=== PATIENT | female | born 1960 | race Caucasian/White ===

== ENCOUNTER 2017-08-17 09:28 | Day surgery (SDC) | payer BC ==
[~2017-08-17 09:28] MED LIST: Acetaminophen TAB* 325 MG PO PRN; Buffered Lidocaine 0.9% SYRIN* 5 ML/SYR SYRINGE INTRADERM ONE; DiMENhydriNATE IV* 50 MG/ML VIAL IV PUSH PRN; Naloxone* 0.4 MG/ML 1 ML VIAL IV PRN; Ondansetron INJ* 2 MG/ML VIAL IV PRN; PROCHLORPERAZINE INJ 5 MG/ML 2 ML VIAL IV PRN
[2017-08-17] MEDS ORDERED: Buffered Lidocaine 0.9% SYRIN* 5 ML/SYR SYRINGE ONE (09:30)
[2017-08-17] MEDS ORDERED: Midazolam* 1 MG/ML 2 ML VIAL (2 MG) ONE ×2 (10:51→12:41)
[2017-08-17] MEDS ORDERED: fentaNYL* 50 MCG/ML 2 ML VIAL (100 MCG VIAL) ONE (10:51)
[2017-08-17] MEDS ORDERED: Lidocaine 1% MPF wEPI 200,000* 30 ML SDV ONE (12:14)
[2017-08-17] MEDS ORDERED: Bupivacaine 0.25% SDV* 30 ML ONE (12:15)
[2017-08-17] MEDS ORDERED: Propofol* 10 MG/ML 20 ML BTL IV PUSH ONE (12:44)
[2017-08-17] MEDS ORDERED: Lidocaine 2% PF * 5 ML VIAL ONE (12:44)
[2017-08-17] MEDS ORDERED: Ondansetron INJ* 2 MG/ML VIAL ONE (12:50)
[2017-08-17] MEDS ORDERED: Dexamethasone IV* 4 MG/ML 1 ML (4 MG) ONE (12:50)
[2017-08-17 15:39] VITALS: BP 129/76
== END 2017-08-17 15:39 | disposition home or self-care (01) ==
LOC: OR 09:28
PROVIDERS: ATTEND Plastic Surgery
DX: C44.311 Basal cell carcinoma of skin of nose (principal); K21.9 Gastro-esophageal reflux disease without esophagitis
CPT/HCPCS: 88305; 88331; 88332; J1100; J2001; J2250; J2405; J2704; J3010